=== PATIENT | female | born 1990 | race Caucasian/White ===

== ENCOUNTER → 2021-09-10 11:47 | Outpatient (BNVA) | payer BC, SELFPAY | PROVIDERS: Visit Provider Nurse Practitioner Family | DX: R63.1 Polydipsia (principal); R63.4 Abnormal weight loss; R73.9 Hyperglycemia, unspecified | CPT/HCPCS: 80053; 80061; 83036 ==

== ENCOUNTER → 2021-12-24 16:41 | Outpatient (BNVA) | payer BC, SELFPAY | PROVIDERS: PCP Nurse Practitioner Family; Visit Provider Nurse Practitioner Family | DX: R00.2 Palpitations (principal); E11.9 Type 2 diabetes mellitus without complications | CPT/HCPCS: 80053; 83036 ==

== ENCOUNTER → 2022-07-15 13:50 | Outpatient (BNVA) | payer BC, SELFPAY | PROVIDERS: PCP Nurse Practitioner Family; Visit Provider Family Medicine | DX: R05.9 Cough, unspecified (principal); J02.9 Acute pharyngitis, unspecified; U07.1 COVID-19 | CPT/HCPCS: 87071; 87426; 87880 ==

== ENCOUNTER → 2024-09-08 11:27 | Outpatient (BNVA) | payer SELFPAY | PROVIDERS: PCP Nurse Practitioner Family; Visit Provider Registered Nurse Neonatal Intensive Care | DX: R73.9 Hyperglycemia, unspecified (principal) | CPT/HCPCS: 83036 ==

== ENCOUNTER 2024-09-12 13:25 | Emergency (ER) | payer SELFPAY ==
[2024-09-12] VITALS (47 sets, daily range): BP systolic 84–104; BP diastolic 54–71; PULSE 65–94; RESP 7–21; TEMP 36.3; O2SAT 95–100; BMI 20.7
[2024-09-12 13:42] LABS: Glucose Point of Care 419 mg/dL (70-110)
--- NOTE | 2024-09-12 13:45 | XR_ITS ---
WS: [id number] Exam: XR chest 1V portable [id number] Date/Time of Exam: 09/12/2024 2:02 PM Reason For Exam: sob No priors. Lungs are fully inflated and clear. Normal cardiomediastinal silhouette. Bony structures are intact. No pleural effusion. Monitoring leads superimpose the chest. XR/XR chest 1V portable [id number] IMPRESSION: 1. Negative chest.
--- NOTE | 2024-09-12 13:46 | ECG_ITS ---
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
--- NOTE | 2024-09-12 13:51 | CT_ITS ---
WS: [id number] CT HEAD NONCONTRAST HISTORY: weakness TECHNIQUE: Contiguous axial imaging performed through the brain. Bone and soft tissue windows. Sagittal and coronal reformats reviewed. All CT scans at [facility] use at least one of these dose optimization techniques: automated exposure control; mA and/or kV adjustment per patient size (includes targeted exams where dose is matched to clinical indication); or iterative reconstruction. DLP: 1024.71 mGy.cm COMPARISON: None available. No acute intracranial hemorrhage, midline shift or mass effect. No atrophy or prior infarcts or herniation. Ventricles: Normal size with no hydrocephalus. No inferior displacement of the cerebellar tonsils. Paranasal sinuses: As visualized are clear. Mastoid air cells: Well pneumatized. Calvarium and scalp: Skull is intact with no soft tissue edema or swelling. CT/CT head wo con* [id number] IMPRESSION: 1. No acute intracranial hemorrhage or edema. 2. Normal noncontrast CT head.
--- NOTE | 2024-09-12 13:52 | W.ED.RECABL ---
HPI - Recheck/Abnormal Lab/Rx General: Chief Complaint: Recheck/Abnormal Lab/Rx Stated Complaint: sob,dizzy, high sugar,abd pain Time Seen by Provider: 09/12/24 13:45 Source: patient Mode of arrival: ambulatory Limitations: no limitations History of Present Illness: 34-year-old female is here with multiple complaints states over the last 3 weeks she has had fatigue and feeling generally weak states she has been having some nausea along with abdominal pain decreased appetite. States she has had some slight lightheadedness as well. She denies any fever she denies any chest pain she has had no vomiting. She is a type II diabetic states her blood sugars been running high as well. Related Data Home Medications ?Medication ?Instructions ?Recorded ?Confirmed cinnamon bark 500 mg capsule 500 mg PO DAILY 09/12/24 09/12/24 (Cinnamon) Previous Rx's ?Medication ?Instructions ?Recorded metformin 500 mg tablet 500 mg PO BID #30 tabs 09/08/24 ondansetron 4 mg disintegrating 4 mg PO Q6H PRN nausea and 09/12/24 tablet vomiting #14 tabs Allergies Allergy/AdvReac Type Severity Reaction Status Date / Time pioglitazone (From Actos) AdvReac ADR-Blurry Verified 09/12/24 13:43 Vision Review of Systems Const: Reports: fatigue; Denies: fever(s), chills, body aches or change in appetite ENMT: Denies: throat pain or dental pain Card: Denies: chest pain Resp: Denies: dyspnea GI: Reports: abdominal pain and nausea; Denies: vomiting or diarrhea : Denies: dysuria Musc: Denies: neck pain or back pain Skin/Breast: Denies: rash Neuro: Reports: dizziness; Denies: headache(s) PFS ED PFSH: Medical History Type 2 diabetes mellitus Surgical History History of wisdom tooth extraction Family History Father Diabetes type 2 Myocardial infarction Brother Diabetes Type 1 Social History Smoking and tobacco/nicotine status: never used tobacco/nicotine Physical Exam Const: COMMON NORMALS: no acute distress, patient oriented x3 and healthy appearing HENMT: COMMON NORMALS: normocephalic and atraumatic HEAD & SCALP: normocephalic and atraumatic Eye: COMMON NORMALS: conjunctivae normal CONJUNCTIVA: Yes conjunctivae normal Neck/C-Spine: COMMON NORMALS: full ROM and supple Chest: COMMONS NORMALS: normal inspection of the chest and normal palpation of entire chest wall Resp: COMMON NORMALS: normal respiratory effort, No retractions, No use of accessory muscles and clear to auscultation bilaterally AUSCULTATION: clear to auscultation bilaterally Cardio: COMMON NORMALS: regular rate, regular rhythm and No murmurs present (Cardio) RATE: regular rate RHYTHM: regular rhythm GI: COMMON NORMALS: Normal to inspection, nondistended, normoactive bowel sounds present, Soft to palpation, non-tender and no masses PALPATION: Yes Soft to palpation Extremity: COMMON NORMALS: normal to inspection and full ROM Neuro: COMMON NORMALS: patient oriented x3, moves all extremities and no focal motor deficits Psych: COMMON NORMALS: mental status grossly normal, Normal thought process present and cooperative THOUGHT PROCESS: Normal thought process present Skin: COMMON NORMALS: no rashes or lesions noted and no wounds GENERAL SKIN EXAM: no rashes or lesions noted Course Vital Signs: Vital signs: Vital Signs Temperature 97.3 F L 09/12/24 13:29 Pulse Rate 82 09/12/24 17:20 Respiratory Rate 21 H 09/12/24 17:20 Blood Pressure 94/62 09/12/24 17:30 Pulse Oximetry 97 09/12/24 17:20 Oxygen Delivery Me thod Room Air 09/12/24 13:29 MDM - Recheck/Abnormal Lab/Rx Medical Decision Making Patient presents for generalized weakness along with abdominal pain and hyperglycemia she feels much improved after IV fluids anion gap is improved as well. CT abdomen shows no acute abnormalities she is stable for discharge she is not in DKA she has to follow-up with her PCP as scheduled this week return if worsening I did inform her of the incidental finding of her kidney she is discussed this with her PCP as well to get further imaging Medical Records I reviewed the patient's medical records. Lab Data I reviewed the patient's lab results. 09/12/24 13:55 09/12/24 15:58 Radiology Impressions Chest X-Ray 09/12/24 13:45 IMPRESSION: 1. Negative chest. Head CT 09/12/24 13:51 IMPRESSION: 1. No acute intracranial hemorrhage or edema. 2. Normal noncontrast CT head. Abdomen/Pelvis CT 09/12/24 16:02 IMPRESSION: No acute findings. Enhancing lesion in the right kidney inferior pole concerning for neoplasm. This can be better assessed with MRI abdomen with and without contrast. Incidental/chronic findings. Laboratory Results WBC 3.22 10^3/uL (3.29-11.43) L 09/12/24 13:55 RBC 4.83 10^6/uL (3.85-5.65) 09/12/24 13:55 Hgb 16.30 g/dL (11.27-16.99) 09/12/24 13:55 Hct 45.5 % (36-47) 09/12/24 13:55 MCV 94.2 fl (85-98) 09/12/24 13:55 MCH 33.7 pg (27-33) H 09/12/24 13:55 MCHC 35.8 g/dL (30-55) 09/12/24 13:55 RDW 12.8 % (12.1-15.1) 09/12/24 13:55 Plt Count 256 10^3/cmm (157-399) 09/12/24 13:55 MPV 9.4 fL (7.4-10.4) 09/12/24 13:55 Neut % (Auto) 40.1 % 09/12/24 13:55 Lymph % (Auto) 46.9 % 09/12/24 13:55 [place] % (Auto) 11.2 % 09/12/24 13:55 Eos % (Auto) 0.6 % 09/12/24 13:55 Baso % (Auto) 0.9 % 09/12/24 13:55 Neut # (Auto) 1.29 10^3/uL (1.8-7.7) L 09/12/24 13:55 Lymph # (Auto) 1.5 10^3/uL (0.8-4.8) 09/12/24 13:55 [place] # (Auto) 0.4 10^3/uL (0.2-0.9) 09/12/24 13:55 Eos # (Auto) 0.0 10^3/uL (0.0-0.8) 09/12/24 13:55 Baso # (Auto) 0.0 10^3/uL (0.0-0.1) 09/12/24 13:55 Nucleated RBC % (auto) 0 % 09/12/24 13:55 Nucleated RBCs # 0.0 /100WBC 09/12/24 13:55 Specimen Type Arterial 09/12/24 14:29 Sample Site Radial, right 09/12/24 14:29 ABG pH 7.40 (7.35-7.45) 09/12/24 14:29 ABG pCO2 26.8 mmHg (35-45) L 09/12/24 14:29 ABG pO2 96.6 mmHg (80.0-100.0) 09/12/24 14:29 ABG PO2/FiO2 Ratio 460 09/12/24 14:29 ABG HCO3 16.6 mmol/L (22-26) L 09/12/24 14:29 ABG Base Excess -6.4 mmol/L (-2.0-2.0) L 09/12/24 14:29 Slade Test Pos 09/12/24 14:29 Hematocrit 49.5 % (37-47) H 09/12/24 14:29 O2 Delivery Device Room air 09/12/24 14:29 FiO2 21.0 % 09/12/24 14:29 Pig Machine Operator Helper ID Juan Albertoro 09/12/24 14:29 Sodium 140 mmol/L (136-145) 09/12/24 15:58 Potassium 2.9 mmol/L (3.5-5.1) L 09/12/24 15:58 Chloride 101 mmol/L (98-107) 09/12/24 15:58 Carbon Dioxide 18 mmol/L (22-29) L 09/12/24 15:58 Anion Gap 23.9 (5-19) H 09/12/24 15:58 BUN 14 mg/dL (6-20) 09/12/24 15:58 Creatinine 0.8 mg/dL (0.5-0.9) 09/12/24 15:58 GFR Calculation 82.6 mL/min (90-130) L 09/12/24 15:58 Glucose 258 mg/dL (65-115) H 09/12/24 15:58 POC Glucose 238 mg/dL (70-110) H 09/12/24 17:06 Calculated Osmolality 299 mOsm/kg (285-295) H 09/12/24 15:58 Lactic Acid 1.1 mmol/L (0.5-2.2) 09/12/24 15:58 Calcium 7.7 mg/dL (8.5-10.5) L 09/12/24 15:58 Total Bilirubin 0.6 mg/dL (0.15-1.2) 09/12/24 13:55 AST 6 U/L (0-32) 09/12/24 13:55 ALT 9 U/L (0-33) 09/12/24 13:55 Alkaline Phosphatase 262 U/L (35-105) H 09/12/24 13:55 Total Protein 6.6 g/dL (6.6-8.7) 09/12/24 13:55 Albumin 4.2 g/dL (3.5-5.2) 09/12/24 13:55 Globulin 2.4 g/dL (1.3-4.6) 09/12/24 13:55 Lipase 30 U/L (13-60) 09/12/24 13:55 HCG, Qual Negative (Negative) 09/12/24 13:55 Urine Color Yellow (Yellow) 09/12/24 14:30 Urine Appearance Clear (CLEAR) 09/12/24 14:30 Urine pH 6.0 (5-7) 09/12/24 14:30 Ur Specific [place] 1.032 (1.005-1.030) H 09/12/24 14:30 Urine Protein 1+ (Negative) A 09/12/24 14:30 Urine Glucose (UA) 3+ (Normal) H 09/12/24 14:30 Urine Ketones 4+ (Negative) 09/12/24 14:30 Urine Blood 2+ (Negative) A 09/12/24 14:30 Urine Nitrate Negative (Negative) 09/12/24 14:30 Urine Bilirubin Negative (Negative) 09/12/24 14:30 Urine Urobilinogen 1.0 mg/dL (Negative) 09/12/24 14:30 Ur Leukocyte Esterase Negative (Negative) 09/12/24 14:30 Urine RBC 21-50 /hpf (0-2) H 09/12/24 14:30 Urine WBC 0-5 /hpf (0-5) 09/12/24 14:30 Ur Squamous Epith Cells 0-5 /hpf (0-5) 09/12/24 14:30 Amorphous Sediment Not Reportable 09/12/24 14:30 Urine Bacteria Trace /hpf (NONE) 09/12/24 14:30 Hyaline Casts 0.40 /lpf 09/12/24 14:30 Serum Ketones Negative (Negative) 09/12/24 13:35 All radiology interpretation(s) finalized by discharge Discharge Plan Discharge Patient Disposition: Home Clinical Impression: Abdominal pain, Generalized weakness, Hyperglycemia Condition: Stable Prescriptions: New ondansetron 4 mg tablet,disintegrating 4 mg PO Q6H PRN (Reason: nausea and vomiting) Qty: 14 0RF No Action metformin 500 mg tablet 500 mg PO BID Qty: 30 0RF cinnamon bark [Cinnamon] 500 mg Capsule 500 mg PO DAILY Discharge Orders: Discharge ED (Routine); Ordered 09/12/24 Ordered By: Ted Malagon Referrals: Felecia Wall NP [Primary Care Provider, Family Practice] Discharge Diet: Advance as tolerated Discharge Activity: Resume usual activity Patient Instructions: Abdominal Pain (ED), Diabetic Hyperglycemia (ED) Print Language: Panamanian Coding Level of Care Code ED Train Control Technician for Isaac Peterson
[2024-09-12 13:59] LABS: Basophils % 0.9 %; Eosinophils % 0.6 %; Hematocrit 45.5 % (36-47); Lymphocytes # 1.5 10^3/uL (0.8-4.8); Lymphocytes % 46.9 %; Mean Corpuscular HGB Conc 35.8 g/dL (30-55); Mean Corpuscular Hemoglobin 33.7 pg (27-33); Mean Corpuscular Volume 94.2 fl (85-98); Mean Platelet Volume 9.4 fL (7.4-10.4); Monocytes # 0.4 10^3/uL (0.2-0.9); Monocytes % 11.2 %; Neutrophils # 1.29 10^3/uL (1.8-7.7); Neutrophils % 40.1 %; Nucleated Red Blood Cells % 0 %; Platelet Count 256 10^3/cmm (157-399); Red Blood Count 4.83 10^6/uL (3.85-5.65); Red Cell Distribution Width 12.8 % (12.1-15.1); White Blood Count 3.22 10^3/uL (3.29-11.43)
[2024-09-12 14:09] LABS: HCG, Serum Qual Negative (Negative)
[2024-09-12 14:19] LABS: Alanine Aminotransferase 9 U/L (0-33); Albumin Level 4.2 g/dL (3.5-5.2); Alkaline Phosphatase 262 U/L (35-105); Anion Gap 31.2 (5-19); Aspartate Amino Transferase 6 U/L (0-32); Blood Urea Nitrogen 16 mg/dL (6-20); Carbon Dioxide 17 mmol/L (22-29); Chloride 92 mmol/L (98-107); Creatinine Clr Calc Pharmacy 102.8259; Globulin 2.4 g/dL (1.3-4.6); Glomerular Filtration Rate 82.6 mL/min (90-130); Glucose 372 mg/dL (65-115); Lipase 30 U/L (13-60); Osmolality Calculated 300 mOsm/kg (285-295); Potassium 3.2 mmol/L (3.5-5.1); Sodium 137 mmol/L (136-145); Total Bilirubin 0.6 mg/dL (0.15-1.2); Total Protein 6.6 g/dL (6.6-8.7)
[2024-09-12 14:31] LABS: Ketone (Acetest) Serum Negative (Negative)
[2024-09-12 14:42] LABS: ABG PCO2 26.8 mmHg (35-45); Arterial Blood Gas Hematocrit 49.5 % (37-47); Base Excess ABG -6.4 mmol/L (-2.0-2.0); Blood Gas Allen Test Pos; Blood Gas Operator Identificat MONRO; Blood Gas Sample Site Radial, right; Blood Gas Sample Type Arterial; HCO3 ABG 16.6 mmol/L (22-26); Oxygen Device ROOM AIR; PO2 ABG 96.6 mmHg (80.0-100.0); PO2 FiO2 Ratio Arterial Blood 460
[2024-09-12] MEDS: sodium chloride 0.9% 1,000 ML 999 ML IV ×3 (14:42→16:17)
[2024-09-12 14:47] LABS: Bilirubin Urine Negative (Negative); Blood Urine 2+ (Negative); Glucose Urine UA 3+ (Normal); Ketones Urine 4+ (Negative); Leukocyte Esterase Urine Negative (Negative); Nitrate Urine Negative (Negative); Protein Urine 1+ (Negative); Urine Appearance Clear (CLEAR); Urine Color Yellow (Yellow)
[2024-09-12 14:51] LABS: Add Urine Microscopic? YES; Bacteria Urine Trace /hpf; RBC Urine 21-50 /hpf (0-2); Squamous Epithelial Cell Urine 0-5 /hpf (0-5); WBC Urine 0-5 /hpf (0-5)
[2024-09-12 14:53] LABS: Add Urine Culture? Yes; Specific Gravity, Urine 1.032 (1.005-1.030)
[2024-09-12 15:06] LABS: Glucose Point of Care 339 mg/dL (70-110)
[2024-09-12] MEDS: insulin regular-human 100 units/1 mL 8 UNIT IVP (15:22)
--- NOTE | 2024-09-12 16:02 | CTR_ITS ---
PROCEDURE INFORMATION: Exam: CT Abdomen And Pelvis With Contrast Exam date and time: 09/12/2024 4:19 PM Age: 34 years old Clinical indication: Abdominal pain; Additional info: Abd pain TECHNIQUE: Imaging protocol: Computed tomography of the abdomen and pelvis with contrast. Radiation optimization: All CT scans at this facility use at least one of these dose optimization techniques: automated exposure control; mA and/or kV adjustment per patient size (includes targeted exams where dose is matched to clinical indication); or iterative reconstruction. Contrast material: OMNI 350; Contrast volume: 100 ml; Contrast route: INTRAVENOUS (IV); COMPARISON: CR XR chest 1V portable [id number] 09/12/2024 1:56 PM RADIATION DOSE METRICS: Total DLP (mGy-cm): 397.85 FINDINGS: Liver: Normal. No mass. Gallbladder and biliary ducts: Normal. No calcified stones. No ductal dilation. Pancreas: Normal. No ductal dilation. Spleen: Normal. No splenomegaly. Adrenal glands: Normal. No mass. Kidneys and ureters: Enhancing lesion inferior pole of the right kidney. This measures 1.8 x 1.4 cm on axial dimension. No hydronephrosis. No nephroureterolithiasis. Stomach and bowel: Moderate amount of retained stool in the colon constipation. Appendix: No evidence of appendicitis. Intraperitoneal space: Scant amount of free fluid in the pelvis is likely physiologic. Vasculature: Unremarkable. No abdominal aortic aneurysm. Lymph nodes: Unremarkable. No enlarged lymph nodes. Urinary bladder: Unremarkable as visualized. Reproductive: Uterine fibroids. Ovarian follicular changes. Bones/joints: Unremarkable. No acute fracture. Soft tissues: Anasarca. CT/CT abdomen pelvis w con* [id number] IMPRESSION: No acute findings. Enhancing lesion in the right kidney inferior pole concerning for neoplasm. This can be better assessed with MRI abdomen with and without contrast. Incidental/chronic findings.
[2024-09-12] MEDS: iohexol 350 mg/mL 500 mL Btl (per mL) IV (16:27)
[2024-09-12 16:44] LABS: Anion Gap 23.9 (5-19); Blood Urea Nitrogen 14 mg/dL (6-20); Calcium 7.7 mg/dL (8.5-10.5); Carbon Dioxide 18 mmol/L (22-29); Chloride 101 mmol/L (98-107); Creatinine Clr Calc Pharmacy 102.8259; Glomerular Filtration Rate 82.6 mL/min (90-130); Glucose 258 mg/dL (65-115); Lactic Sepsis W/Reflex 1.1 mmol/L (0.5-2.2); Osmolality Calculated 299 mOsm/kg (285-295); Sodium 140 mmol/L (136-145)
[2024-09-12 16:49] LABS: Potassium 2.9 mmol/L (3.5-5.1)
[2024-09-12 17:10] LABS: Glucose Point of Care 238 mg/dL (70-110)
== END 2024-09-12 17:31 | disposition home or self-care (01) ==
PROVIDERS: Emergency Provider Emergency Medicine; PCP Nurse Practitioner Family
DX: R10.9 Unspecified abdominal pain (principal); R53.1 Weakness; E11.65 Type 2 diabetes mellitus with hyperglycemia
CPT/HCPCS: 36415; 36416; 36600; 70450; 71045; 74177; 80048; 80053; 81001; 82009; 82803; 82962; 83605; 83690; 84703; 85025; 87086; 93005; 96361; 96374; 99285; J1815; J7030

== ENCOUNTER → 2024-09-15 09:40 | Outpatient (BNVA) | payer SELFPAY | PROVIDERS: PCP Nurse Practitioner Family; Visit Provider Nurse Practitioner Family | DX: E11.9 Type 2 diabetes mellitus without complications (principal) | CPT/HCPCS: 80053; 84443; 85025 ==

== ENCOUNTER 2024-10-18 07:39 | Outpatient (CLI) | payer SELFPAY ==
--- NOTE | 2024-10-18 08:00 | MR_ITS ---
WS: [id number] MRI ABDOMEN WITH AND WITHOUT CONTRAST. COMPARISON: CT abdomen 09/12/2024 Multiplanar, multisequence imaging is performed with and without contrast. Post MultiHance imaging 14 cc IV. History: Abdominal pain. RIGHT renal mass seen on recent CT abdomen. RIGHT kidney is normal size. Cortical based mass measures 1.4 x 1.2 x 1.8 cm in the lower pole cortex. Mass is of increased signal on the T2 sequences. There is very slight loss of signal on the out of phase imaging. On the postcontrast imaging there is significant enhancement within the renal lesion. This is a very vascular mass. There are a few small foci that do not enhance within the mass. The remaining kidney is negative. Normal LEFT kidney. Normal liver and spleen. No intrahepatic duct dilatation. Normal gallbladder. No adrenal mass. Pancreas is normal. No pancreatic duct or common bile duct dilatation. No ascites or adenopathy. Normal appearance of the IVC and aorta. No abdominal wall abnormality. MR/MR abdomen wo/w con* [id number] IMPRESSION: 1. Hypervascular mass lower pole RIGHT kidney measures 1.4 x 1.2 x 1.8 cm. Cor responds to the solid mass seen on recent CT. Recommend evaluation by urology. Renal cell tumor needs to be excluded. Differential includes small angiomyolipo ma with limited fat present. 2. No renal obstruction. No adenopathy.
== END 2024-10-18 07:40 | disposition home or self-care (01) ==
PROVIDERS: PCP Nurse Practitioner Family; Visit Provider Nurse Practitioner Family
DX: N28.9 Disorder of kidney and ureter, unspecified (principal); R10.9 Unspecified abdominal pain
CPT/HCPCS: 74183

== ENCOUNTER → 2024-10-20 14:56 | Outpatient (BNVA) | payer SELFPAY | PROVIDERS: PCP Nurse Practitioner Family; Visit Provider Nurse Practitioner Family | DX: J32.9 Chronic sinusitis, unspecified (principal) | CPT/HCPCS: 80053; 85025 ==

== ENCOUNTER → 2024-10-24 12:49 | Outpatient (BNVA) | payer SELFPAY | PROVIDERS: PCP Nurse Practitioner Family; Visit Provider Nurse Practitioner Family | DX: J32.9 Chronic sinusitis, unspecified (principal) | CPT/HCPCS: 85025 ==

== ENCOUNTER → 2025-01-03 11:01 | Outpatient (BNVA) | payer OTHER, SELFPAY | PROVIDERS: PCP Nurse Practitioner Family; Visit Provider Nurse Practitioner Family | DX: E11.9 Type 2 diabetes mellitus without complications (principal) | CPT/HCPCS: 80053; 83036; 84443; 85025 ==

== ENCOUNTER 2025-03-10 09:28 | Outpatient (CLI) | payer OTHER, SELFPAY ==
[2025-03-10 10:59] LABS: Hematocrit 42.0 % (36-47); Hemoglobin 14.00 g/dL (11.27-16.99); Mean Corpuscular HGB Conc 33.3 g/dL (30-55); Mean Corpuscular Hemoglobin 32.8 pg (27-33); Mean Corpuscular Volume 98.4 fl (85-98); Nucleated Red Blood Cells % 0 %; Platelet Count 273 10^3/cmm (157-399); Red Blood Count 4.27 10^6/uL (3.85-5.65); White Blood Count 4.19 10^3/uL (3.29-11.43)
[2025-03-10 11:09] LABS: INR 0.83 (0.8-1.2); Prothrombin Time 12.00 SECONDS (12.1-14.9)
[2025-03-10 11:10] LABS: Partial Thromboplastin Time 28.1 SECONDS (23.9-36.7)
[2025-03-10 11:28] LABS: Alanine Aminotransferase 15 U/L (0-33); Albumin Level 4.0 g/dL (3.5-5.2); Alkaline Phosphatase 63 U/L (35-105); Anion Gap 11.4 (5-19); Aspartate Amino Transferase 15 U/L (0-32); Blood Urea Nitrogen 18 mg/dL (6-20); Calcium 8.6 mg/dL (8.5-10.5); Carbon Dioxide 28 mmol/L (22-29); Chloride 103 mmol/L (98-107); Globulin 2.4 g/dL (1.3-4.6); Glucose 135 mg/dL (65-115); Osmolality Calculated 290 mOsm/kg (285-295); Potassium 4.4 mmol/L (3.5-5.1); Sodium 138 mmol/L (136-145); Total Protein 6.4 g/dL (6.6-8.7)
== END 2025-03-10 09:29 | disposition home or self-care (01) ==
PROVIDERS: PCP Nurse Practitioner Family; Visit Provider Nurse Practitioner Family
DX: N28.89 Other specified disorders of kidney and ureter (principal)
CPT/HCPCS: 36415; 80053; 85025; 85610; 85730; 86850; 86900